=== PATIENT | female | born 2005 | race Caucasian/White ===

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

== ENCOUNTER 2023-07-27 08:19 | Emergency (ER) | payer BC, SELFPAY ==
[2023-07-27] VITALS (7 sets, daily range): BP systolic 124–137; BP diastolic 76–85; PULSE 91–123; RESP 17–23; TEMP 36.5; O2SAT 100
--- NOTE | ~2023-07-27 | XR_ITS ---
EXAMINATION: XR chest 1V portable 07/27/2023 09:52 INDICATION: Chest pain PROCEDURE: AP portable chest COMPARISON: No prior studies for comparison. FINDINGS: The lungs are clear. The cardiomediastinal silhouette is within normal limits. There are no pleural effusions. There is no pneumothorax suspected. IMPRESSION: 1: NO ACUTE CARDIOPULMONARY DISEASE. Reviewed, dictated and finalized at location A.
--- NOTE | 2023-07-27 08:27 | ECG_ITS ---
Measurements Intervals [place] Rate: 120 P: 52 AR: 162 QRS: 50 QRSD: 79 T: -7 QT: 318 QTc: 450 Interpretive Statements SINUS TACHYCARDIA MINIMAL Q WAVES- INFERIOR LEADS NONSPECIFIC ST & T-WAVE ABNORMALITY- ANTEROLAT/INF LEADS ABNORMAL ECG NO PREVIOUS ECG AVAILABLE FOR COMPARISON Electronically Signed On 07-27-2023 8:38:38 CDT by Eh Rodriguez D.O.
--- NOTE | 2023-07-27 08:42 | ED.ARRPALP ---
HPI - Arrhythmia/Palpitations General Chief Complaint: Arrhythmia/Palpitations Stated Complaint: heart racing Time Seen by Provider: 07/27/23 08:36 Source: patient and family Mode of arrival: ambulatory Limitations: no limitations History of Present Illness HPI narrative: 18-year-old female presenting with episode of palpitations this morning. Reports no medical problems in the past. Was quite work and felt like her heart was racing. Also said she felt a bit lightheaded during episode. Lasted for about 15 minutes. Called her mom and her mom told her to check her ECG on her watch which she showed me. Looks like SVT at a rate of 220. Can not confirm given it was just on her ECG reading from her watch in 1 lead. Currently feeling a bit better, no longer feeling palpitations or lightheaded. Related Data Home Medications Medication Instructions Recorded Confirmed No Home Medications 07/27/23 07/27/23 Allergies Allergy/AdvReac Type Severity Reaction Status Date / Time No Known Allergies Allergy Verified 07/27/23 08:29 Review of Systems Review of Systems: All systems reviewed & are unremarkable except as noted in HPI and below PMFSH Past Medical History Medical History Sprain of right wrist Social History Social History Smoking status: Never smoker Alcohol intake: never Substance use: never Substance use type: does not use Living arrangements: with family Occupation/Education: student Gender identity (if verbalized by the patient): Female Exam Narrative: Constitutional: Generally well appearing, no acute distress Head: Atraumatic, no deformities. Eyes: Pupils equal, round, and reactive to light. Neck: Supple, no tracheal deviation, no JVD. ENMT: Mucous membranes moist Cardiovascular: S1, S2 auscultated. No murmurs, rubs, or gallops. No S3/S4. Normal Distal pulses. No peripheral edema. Respiratory: Lung sounds equal. No wheezes, rales, or rhonchi. Gastrointestinal: Abdomen was soft and non-tender. Non-distended. No rebound or guarding. Genitourinary: Deferred Musculoskeletal: Normal muscle tone and bulk. No obvious deformities or tenderness over extremities. Skin: No rashes. Neurological: Strength 5/5 in extremities. Cranial nerves I-XII grossly intact. Distal sensation intact. Mental Status: Awake, alert and oriented x3. Follows commands Course Vital Signs Vital signs: Vital Signs Temperature 36.5 C 07/27/23 08:23 Pulse Rate 121 H 07/27/23 08:23 Respiratory Rate 20 07/27/23 08:23 Blood Pressure 137/85 07/27/23 08:23 Pulse Oximetry 100 07/27/23 08:23 Oxygen Delivery Room Air 07/27/23 08:23 Temperature 36.5 C 07/27/23 08:23 Pulse Rate 91 07/27/23 10:45 Respiratory Rate 19 07/27/23 10:45 Blood Pressure 124/82 07/27/23 09:31 Pulse Oximetry 100 07/27/23 10:45 Oxygen Delivery Room Air 07/27/23 08:27 MDM - Arrhythmia/Palpitations MDM Narrative Medical decision making narrative: 18-year-old female presenting for episode of palpitations, lightheadedness this morning. Show me her about watchful waiting which had ECG strips which does look like SVT likely and had a rate of 220. Currently heart rate is 120, sinus tachycardia. ECG obtained at 8:28 a.m. showing sinus tachycardia, nonspecific ST wave, no obvious ischemic changes, normal intervals. Impression: No STEMI on exam she is tachycardic otherwise normal cardiorespiratory exam. Obtaining cardiac workup on her. Have to obtain D-dimer to rule out pulmonary embolism given her tachycardia cannot rule out based on PERC Rule. labs and imaging reviewed, unremarkable. Do show anemia with low MCV. She does have a history of iron deficiency in no she should be taking iron supplementation. Given a prescription for iron tablets. Will follow with PCP. Discussed no stim
[2023-07-27] MEDS: SODIUM CHLORIDE 0.9% IV 1,000 ML 999 ML IV CONT (09:05)
[2023-07-27 09:10] LABS: Basophils Percent Auto 0.4 % (0.2-1.2); Eosinophils Percent Auto 0.7 % (0-4.4); Hemoglobin 9.2 g/dL (12.0-15.0); Lymphocytes Absolute Auto 2.19 K/mm3 (0.9-3.2); Lymphocytes Percent Auto 47.5 % (18.3-44.2); Mean Corpuscular HGB Conc 28.8 g/dl (32-36); Mean Corpuscular Hemoglobin 20.4 pg (26-34); Mean Corpuscular Volume 70.8 fl (80-100); Mean Platelet Volume 9.5 fl (7.4-10.4); Monocytes Absolute Auto 0.4 K/mm3 (0.1-0.6); Monocytes Percent Auto 9.3 % (2.6-8.5); Neutrophils Absolute Auto 1.9 K/mm3 (1.3-6.7); Neutrophils Percent Auto 42.1 % (45.5-73.1); Platelet Count Result 276 k/mm3 (150-375); Red Blood Count 4.52 M/mm3 (4.2-5.4); Red Cell Distribution Width 17.3 % (11.5-14.5); White Blood Count 4.6 K/mm3 (4.5-10.0)
[2023-07-27 09:23] LABS: Alanine Aminotransferase 13 U/L (6-35); Albumin Level 4.2 g/dL (3.5-5.1); Alkaline Phosphatase 65 U/L (38-126); Anion Gap 7 mmol/L (8-16); Aspartate Amino Transferase 23 U/L (14-36); Bilirubin,Total 0.3 mg/dL (0.2-1.3); Blood Urea Nitrogen 7 mg/dL (7-17); Calcium 9.5 mg/dL (8.4-10.2); Carbon Dioxide 24 mmol/L (22-30); Chloride 108 mmol/L (98-107); Estimated CRCL calculation 103 ml/min; Estimated Glomerular Filt Rate > 60; Glucose 89 mg/dL (65-110); Potassium 3.6 mmol/L (3.4-5.0); Sodium 139 mmol/L (137-145)
[2023-07-27 09:34] LABS: Troponin I < 0.012 ng/mL (0.000-0.034)
[2023-07-27 09:38] LABS: D Dimer 0.29 ug/mL (<0.48)
== END 2023-07-27 11:24 | disposition home or self-care (01) ==
PROVIDERS: Emergency Provider Emergency Medicine; PCP Pediatrics
DX: I47.10 Supraventricular tachycardia, unspecified (principal)
CPT/HCPCS: 36415; 71045; 80053; 81025; 84484; 85025; 85380; 93005; 96360; 99284; J7030